=== PATIENT | male | born 1975 | race Caucasian/White ===

== ENCOUNTER 2017-08-26 09:59 | Emergency (ER) | payer MEDICAID ==
[~2017-08-26] VITALS: Ht 170.2 cm; Wt 80.0 kg
[~2017-08-26 09:59] MED LIST: ALBU18HF2 INH; CLIN-79 PO; CLIN-80 PO; CLIN150C99 PO; CYCL-1 PO; DOCU-28 PO; HYDR25SU32 RC; IBUP-1985 PO; IBUP-1986 PO; LEVA1.2516 IH; MOME13HF2 INH; NAPR-1144 PO; NAPR-56 PO; NO HOME MEDS; PRED20TA PO
[2017-08-26] MEDS ORDERED: ketorolac trometh. 30mg/ml inj. IM ONE (10:40)
[2017-08-26 11:06] VITALS: BP 157/33
== END 2017-08-26 11:11 | disposition home or self-care (01) ==
LOC: ER 10:00
DX: J06.9 Acute upper respiratory infection, unspecified (principal); J45.909 Unspecified asthma, uncomplicated; G89.29 Other chronic pain; M54.41 Lumbago with sciatica, right side; Z88.2 Allergy status to sulfonamides
CPT/HCPCS: 96372; 99283; J1885

== ENCOUNTER 2017-11-19 21:40 | Emergency (ER) | payer MEDICAID, OTHER ==
[~2017-11-19] VITALS: Ht 170.2 cm; Wt 79.6 kg
[2017-11-19 22:37] VITALS: BP 156/77
[2017-11-20] MEDS ORDERED: dexamethasone 4mg tablet PO ONE (02:10)
[2017-11-20] MEDS ORDERED: proparacaine 0.5% ophthalmic drops 15ml RIGHTEYE ONE (02:10)
[2017-11-20] MEDS ORDERED: ipratropium/albuterol 3ml nebule NEB ONE (02:10)
[2017-11-20] MEDS ORDERED: ALBU8HFA PO (02:43)
== END 2017-11-20 03:26 | disposition home or self-care (01) ==
LOC: ER 21:41
DX: H10.11 Acute atopic conjunctivitis, right eye (principal); J45.901 Unspecified asthma with (acute) exacerbation; F17.200 Nicotine dependence, unspecified, uncomplicated; G89.29 Other chronic pain; Z88.2 Allergy status to sulfonamides; Z79.899 Other long term (current) drug therapy
CPT/HCPCS: 71046; 94640; 94760; 99284; J8540

== ENCOUNTER 2018-01-03 02:11 | Emergency (ER) | payer OTHER ==
[~2018-01-03 02:11] MED LIST changes: -CLIN-79 PO; -CLIN-80 PO; +CLIN150C8 PO; +CLIN300C85 PO
== END 2018-01-03 02:34 | disposition left against medical advice (07) ==
LOC: ER 02:12
DX: R10.9 Unspecified abdominal pain (principal); Z53.21 Procedure and treatment not carried out due to patient leaving prior to being seen by health care provider